=== PATIENT | male | born 1960 | race Caucasian/White ===

== ENCOUNTER 2023-12-27 17:04 | Inpatient (IN) ==
[2023-12-27 17:35] LABS: ABS Basophils 0.1 10^3/uL (0.0-0.1); ABS Eosinophils 0.1 10^3/uL (0.0-0.5); ABS Lymphocytes 1.4 10^3/uL (1.0-4.8); ABS Monocytes 0.7 10^3/uL (0.0-1.1); ABS Neutrophils 5.2 10^3/uL (1.5-7.6); ABS Nucleated RBC 0.01 10^3/ul; Eosinophil % 0.7 %; Hematocrit 45.5 % (38-53); Hemoglobin 15.6 g/dL (13.2-16.3); Lymphocyte % 18.9 %; Mean Corpuscular Hemoglobin 34.5 pg (27-33); Mean Corpuscular Hgb Conc 34.3 g/dL (31-36); Mean Corpuscular Volume 100.3 fL (80-97); Nucleated Red Blood Cells % 0.1 %/100WBC (0.0-0.8); Platelet Count 139 10^3/uL (150-450); Red Blood Count 4.53 10^6/uL (4.06-5.63); Red Cell Distribution Width 16.1 % (12-17); White Blood Count 7.5 10^3/uL (3.6-10.2)
[2023-12-27 18:18] LABS: Albumin 3.2 g/dL (3.2-5.2); Albumin/Globulin Ratio 1.2 (1-3); Calcium 8.7 mg/dL (8.6-10.3); Creatinine, Serum 0.91 mg/dL (0.67-1.17); Globulin 2.7 g/dL (2-4); Total Bilirubin 0.7 mg/dL (0.2-1.0); Total Protein 5.9 g/dL (6.4-8.9); eGFR CKD-EPI 95.3 (>60)
[2023-12-27 18:51] LABS: INR 1.06 (0.83-1.13)
[2023-12-27 19:04] LABS: High Sensitivity Troponin 1 Hr 68 pg/mL (<20)
[2023-12-27] MEDS: Furosemide 40 mg/4 ml IV VIAL IV SLOW PU ONE (19:28)
[2023-12-27] MEDS ORDERED: Albuterol HFA INHALER 8 gm MDI INH PRN (20:05)
[2023-12-27 20:55] LABS: Folate 16.92 ng/mL (5.90-24.80)
[2023-12-27] MEDS ORDERED: Budesonide/Formote 80/4.5(NF) MDI INH SCH (21:00)
[2023-12-28 05:41] LABS: ABS Eosinophils 0.1 10^3/uL (0.0-0.5); ABS Lymphocytes 1.4 10^3/uL (1.0-4.8); ABS Monocytes 0.8 10^3/uL (0.0-1.1); ABS Neutrophils 5.9 10^3/uL (1.5-7.6); ABS Nucleated RBC 0.01 10^3/ul; Eosinophil % 0.7 %; Hematocrit 47.3 % (38-53); Lymphocyte % 16.9 %; Mean Corpuscular Hemoglobin 34.1 pg (27-33); Mean Corpuscular Hgb Conc 33.9 g/dL (31-36); Mean Corpuscular Volume 100.6 fL (80-97); Mean Platelet Volume 7.7 fL (7.5-11.2); Nucleated Red Blood Cells % 0.1 %/100WBC (0.0-0.8); Platelet Count 148 10^3/uL (150-450); Red Cell Distribution Width 16.1 % (12-17); White Blood Count 8.3 10^3/uL (3.6-10.2)
[2023-12-28 06:26] LABS: Creatinine, Serum 0.91 mg/dL (0.67-1.17); Magnesium 1.5 mg/dL (1.9-2.7); Potassium 3.9 mmol/L (3.5-5.0); eGFR CKD-EPI 95.3 (>60)
[2023-12-28] MEDS: Fluticasone-Salmeterol 250-50 DISKUS NF INH SCH (06:40)
[2023-12-28] MEDS ORDERED: Dextrose 50% Syringe 50 ml 25 GM/50 ML SYRINGE IV PUSH PRN (08:01)
[2023-12-28] MEDS: Albuterol/Ipratropium NEB.SOL (2.5/0.5 MG) 3 ML NEB.SOLN INH SCH (08:35)
[2023-12-28] MEDS: CMCS: FLUTICAS/UMECLI/VILANT 200-62.5-25 MDI (NF) INH SCH (08:44)
[2023-12-28] MEDS: Furosemide 40 mg/4 ml IV VIAL IV SLOW PU SCH (08:48)
[2023-12-28] MEDS: Potassium Chlor 20 meq TAB.ER PO ONE (08:48)
[2023-12-28] MEDS: Magnesium Sulf 4 GM/100 ML IV 4,000 MG/100 ML BAG IVPB ONE (08:49)
[2023-12-28] MEDS: Isosorbide Mononit ER 60mg TAB PO SCH (08:53)
[2023-12-28 10:08] LABS: ABS Basophils 0.1 10^3/uL (0.0-0.1); ABS Lymphocytes 1.2 10^3/uL (1.0-4.8); ABS Monocytes 0.7 10^3/uL (0.0-1.1); ABS Neutrophils 5.9 10^3/uL (1.5-7.6); ABS Nucleated RBC 0.01 10^3/ul; Eosinophil % 0.4 %; Hematocrit 47.9 % (38-53); Lymphocyte % 14.7 %; Mean Corpuscular Hemoglobin 33.7 pg (27-33); Mean Corpuscular Hgb Conc 33.5 g/dL (31-36); Mean Corpuscular Volume 100.7 fL (80-97); Mean Platelet Volume 7.9 fL (7.5-11.2); Nucleated Red Blood Cells % 0.1 %/100WBC (0.0-0.8); Platelet Count 148 10^3/uL (150-450); Red Blood Count 4.75 10^6/uL (4.06-5.63); Red Cell Distribution Width 16.4 % (12-17)
[2023-12-28 10:17] LABS: Activated Partial Thrombo Time 32.1 seconds (26.0-38.0); INR 1.07 (0.83-1.13)
[2023-12-28] MEDS ORDERED: Sulfur Hexaflouride MICROSPHR 25 MG VIAL ONE (11:25)
[2023-12-28 11:47] LABS: Potassium 3.9 mmol/L (3.5-5.0); eGFR CKD-EPI 85.1 (>60)
[2023-12-28] MEDS: ERTUGLIFLOZIN 15 MG PO SCH (17:24)
[2023-12-28] MEDS: Sulfur Hexaflouride MICROSPHR 25 MG VIAL IV ONE (17:24)
[2023-12-28] MEDS: Enoxaparin 40 MG/0.4 ML SYR SUBCUT SCH (20:17)
[2023-12-29 08:54] LABS: Calcium 8.6 mg/dL (8.6-10.3); Creatinine, Serum 0.85 mg/dL (0.67-1.17); Magnesium 1.9 mg/dL (1.9-2.7); Potassium 3.9 mmol/L (3.5-5.0); eGFR CKD-EPI 98.2 (>60)
[2023-12-30] MEDS ORDERED: Albuterol/Ipratropium NEB.SOL (2.5/0.5 MG) 3 ML NEB.SOLN INH PRN (06:47)
[2023-12-30 08:07] LABS: Calcium 8.5 mg/dL (8.6-10.3); Creatinine, Serum 0.95 mg/dL (0.67-1.17); Magnesium 1.7 mg/dL (1.9-2.7); Potassium 4.1 mmol/L (3.5-5.0); eGFR CKD-EPI 90.5 (>60)
[2023-12-30] MEDS: Magnesium Sulfate 2 gm BAG 2 GM/50 ML BAG IVPB ONE (09:05)
[2023-12-31 06:21] LABS: Anion Gap 7 mmol/L (2-16); Blood Urea Nitrogen 17 mg/dL (6-24); CO2 Carbon Dioxide 33 mmol/L (22-32); Calcium 8.7 mg/dL (8.6-10.3); Chloride 97 mmol/L (101-111); Creatinine, Serum 0.98 mg/dL (0.67-1.17); Glucose 158 mg/dL (70-100); Magnesium 1.9 mg/dL (1.9-2.7); Sodium 137 mmol/L (135-145); eGFR CKD-EPI 87.2 (>60)
[2023-12-31] MEDS: NS 0.9% 1000 ml BAG 1,000 ML IV SCH ×2 (06:41→13:10)
[2023-12-31] MEDS ORDERED: Heparin 2 UNITS/ML 1000 mls 2,000 ML IV ONE (11:47)
[2023-12-31] MEDS ORDERED: Iohexol 350 (CONTRAST) 200 ML MDV IV ONE (11:47)
[2023-12-31] MEDS ORDERED: VERAPAMIL 2.5 MG/ML 2 ML VIAL ** 5 mg/2 ml ONE (11:47)
[2023-12-31] MEDS ORDERED: Heparin 1,000 UNIT/ML 10 ml (10,000 UNITS) CATHLAB/DIALYSIS ONE (11:47)
[2023-12-31] MEDS ORDERED: nitroGLYCERIN DRIP 25,000 MCG/250 ML BTL ONE (11:47)
[2023-12-31] MEDS ORDERED: Lidocaine 1% MPF 5 ML VIAL ONE (11:47)
[2023-12-31] MEDS ORDERED: fentaNYL 100 mcg/2 ml 50 MCG/ML VIAL ONE (12:06)
[2023-12-31] MEDS ORDERED: Midazolam 5 mg/5 ml VIAL 1 mg/ml 5 ml VIAL (5 mg) ONE (12:06)
[2023-12-31 12:43] LABS: POC SO2 61 %
[2023-12-31 12:43] LABS: POC SO2 57 %
[2023-12-31 12:43] LABS: POC SO2 86 %
[2023-12-31] MEDS: fentaNYL 100 mcg/2 ml 50 MCG/ML VIAL IV SLOW PU ONE (13:08)
[2023-12-31] MEDS: Midazolam 10 mg/10 ml VIAL 1 mg/ml 10 ml VIAL (10 mg) IV SLOW PU ONE (13:09)
[2023-12-31 16:38] VITALS: BP 106/79
== END 2023-12-31 17:20 | disposition home or self-care (01) | DRG 192 ==
LOC: EDHOLD 17:04 → ED 17:04 → SUATTDRO 19:58 → MEDTELE 12-28 16:35 → SUATTDRO 12-29 16:39
PROVIDERS: ADMIT Internal Medicine; ATTEND Internal Medicine

== ENCOUNTER 2024-02-10 15:24 | Inpatient (IN) ==
[2024-02-10 16:02] LABS: ABS Lymphocytes 1.2 10^3/uL (1.0-4.8); ABS Monocytes 0.5 10^3/uL (0.0-1.1); ABS Neutrophils 11.7 10^3/uL (1.5-7.6); ABS Nucleated RBC 0.01 10^3/ul; Hemoglobin 18.2 g/dL (13.2-16.3); Lymphocyte % 8.8 %; Mean Corpuscular Hemoglobin 34.1 pg (27-33); Mean Corpuscular Hgb Conc 34.4 g/dL (31-36); Mean Corpuscular Volume 99.1 fL (80-97); Mean Platelet Volume 7.7 fL (7.5-11.2); Platelet Count 196 10^3/uL (150-450); Red Blood Count 5.35 10^6/uL (4.06-5.63); Red Cell Distribution Width 16.5 % (12-17); White Blood Count 13.4 10^3/uL (3.6-10.2)
[2024-02-10 16:51] LABS: Albumin 4.1 g/dL (3.2-5.2); Albumin/Globulin Ratio 1.1 (1-3); Creatinine, Serum 0.82 mg/dL (0.67-1.17); Globulin 3.6 g/dL (2-4); Magnesium 1.5 mg/dL (1.9-2.7); Potassium 4.1 mmol/L (3.5-5.0); Total Protein 7.7 g/dL (6.4-8.9); eGFR CKD-EPI 99.3 (>60)
[2024-02-10] MEDS: Iodixanol 320 (CONTRAST) 100 ML SDV IV ONE (17:23)
[2024-02-10 17:27] LABS: High Sensitivity Troponin 1 Hr 657 pg/mL (<20)
[2024-02-10] MEDS: Ondansetron 4 mg VIAL 2 MG/ML 2 ml VIAL IV ONE (17:39)
[2024-02-10 19:14] LABS: High Sensitivity Troponin 3 Hr 739 pg/mL (<20)
[2024-02-10] MEDS: Ondansetron 4 mg VIAL 2 MG/ML 2 ml VIAL IV PRN (20:53)
[2024-02-10] MEDS: Heparin 5000 UNITS/ML 1 mL VIAL IV SCH (22:55)
[2024-02-10 22:57] LABS: ABS Basophils 0.1 10^3/uL (0.0-0.1); ABS Lymphocytes 1.6 10^3/uL (1.0-4.8); ABS Monocytes 1.2 10^3/uL (0.0-1.1); ABS Neutrophils 11.1 10^3/uL (1.5-7.6); ABS Nucleated RBC 0.01 10^3/ul; Hematocrit 54.1 % (38-53); Hemoglobin 18.2 g/dL (13.2-16.3); Lymphocyte % 11.6 %; Mean Corpuscular Hemoglobin 33.5 pg (27-33); Mean Corpuscular Hgb Conc 33.6 g/dL (31-36); Mean Corpuscular Volume 99.7 fL (80-97); Mean Platelet Volume 7.9 fL (7.5-11.2); Platelet Count 196 10^3/uL (150-450); Red Blood Count 5.43 10^6/uL (4.06-5.63); Red Cell Distribution Width 16.6 % (12-17)
[2024-02-10] MEDS: Heparin DRIP 25,000 UNITS BAG 25,000 UNITS/250 ML BAG IV SCH (22:57)
[2024-02-10] MEDS: Morphine 10 MG/ML VIAL (1 ml) IV ONE (23:16)
[2024-02-10 23:42] LABS: Creatinine, Serum 0.92 mg/dL (0.67-1.17); eGFR CKD-EPI 94.1 (>60)
[2024-02-11 03:38] LABS: Ferritin 738.8 ng/mL (24-336)
[2024-02-11 05:01] LABS: ABS Basophils 0.1 10^3/uL (0.0-0.1); ABS Lymphocytes 2.2 10^3/uL (1.0-4.8); ABS Monocytes 1.3 10^3/uL (0.0-1.1); ABS Neutrophils 11.2 10^3/uL (1.5-7.6); ABS Nucleated RBC 0.01 10^3/ul; Eosinophil % 0.1 %; Hematocrit 54.9 % (38-53); Hemoglobin 18.6 g/dL (13.2-16.3); Lymphocyte % 14.8 %; Mean Corpuscular Hemoglobin 33.9 pg (27-33); Mean Corpuscular Hgb Conc 33.9 g/dL (31-36); Mean Corpuscular Volume 99.8 fL (80-97); Mean Platelet Volume 7.9 fL (7.5-11.2); Nucleated Red Blood Cells % 0.1 %/100WBC (0.0-0.8); Platelet Count 218 10^3/uL (150-450); Red Cell Distribution Width 16.5 % (12-17); White Blood Count 14.8 10^3/uL (3.6-10.2)
[2024-02-11] MEDS ORDERED: Dextrose 50% Syringe 50 ml 25 GM/50 ML SYRINGE IV PUSH PRN (07:39)
[2024-02-11] MEDS: Mometasone/Formoter 100/5 MDI INH SCH (07:54)
[2024-02-11] MEDS: Albuterol HFA INHALER 8 gm MDI INH PRN (08:18)
[2024-02-11] MEDS: Venlafaxine XR 75 mg PO SCH (08:21)
[2024-02-11] MEDS: Isosorbide Mononit ER 60mg TAB PO SCH (08:21)
[2024-02-11 08:32] LABS: High Sensitivity Troponin 3 Hr 699 pg/mL (<20)
[2024-02-11] MEDS ORDERED: FLUTICAS/UMECLI/VILANT 200-62.5-25 MDI (NF) INH SCH (09:00)
[2024-02-11 09:29] LABS: Calcium 9.2 mg/dL (8.6-10.3); Creatinine, Serum 0.85 mg/dL (0.67-1.17); Magnesium 1.7 mg/dL (1.9-2.7); eGFR CKD-EPI 98.2 (>60)
[2024-02-11 09:46] LABS: Potassium 3.9 mmol/L (3.5-5.0)
[2024-02-11] MEDS: methylPREDNISolone SOD SUCC 40 mg/ml 1 ml VIAL IV SCH (11:00)
[2024-02-11] MEDS ORDERED: Albuterol/Ipratropium NEB.SOL (2.5/0.5 MG) 3 ML NEB.SOLN INH PRN (11:08)
[2024-02-11] MEDS: Albuterol/Ipratropium NEB.SOL (2.5/0.5 MG) 3 ML NEB.SOLN INH SCH (11:17)
[2024-02-11] MEDS: cefTRIAXone 1 gm/50 mL D5W 1 GM/50 ML BAG IV SCH (11:47)
[2024-02-11 12:10] LABS: HDL Cholesterol 60.6 mg/dL
[2024-02-11] MEDS: Magnesium Sulfate 2 gm BAG 2 GM/50 ML BAG IVPB ONE (12:55)
[2024-02-11] MEDS: Sulfur Hexaflouride MICROSPHR 25 MG VIAL IV ONE (14:18)
[2024-02-11] MEDS: Azithromycin 500 mg/250 ml NS 500 MG/250 ML BAG IVPB SCH (14:53)
[2024-02-12] MEDS: oxyCODONE/Acetamin 5/325 mg TAB PO PRN (01:10)
[2024-02-12 06:01] LABS: ABS Monocytes 0.4 10^3/uL (0.0-1.1); ABS Neutrophils 7.4 10^3/uL (1.5-7.6); Hematocrit 50.6 % (38-53); Lymphocyte % 11.3 %; Mean Corpuscular Hemoglobin 33.8 pg (27-33); Mean Corpuscular Hgb Conc 33.7 g/dL (31-36); Mean Corpuscular Volume 100.4 fL (80-97); Platelet Count 216 10^3/uL (150-450); Red Blood Count 5.04 10^6/uL (4.06-5.63); Red Cell Distribution Width 16.4 % (12-17); White Blood Count 8.8 10^3/uL (3.6-10.2)
[2024-02-12 06:17] LABS: Creatinine, Serum 1.11 mg/dL (0.67-1.17); Magnesium 2.2 mg/dL (1.9-2.7); Phosphorus 5.4 mg/dL (2.5-5.0); Potassium 4.6 mmol/L (3.5-5.0); eGFR CKD-EPI 75.1 (>60)
[2024-02-12] MEDS: Furosemide 20 mg/2 ml IV VIAL IV ONE (11:19)
[2024-02-13 06:28] LABS: ABS Lymphocytes 1.1 10^3/uL (1.0-4.8); ABS Monocytes 0.6 10^3/uL (0.0-1.1); ABS Neutrophils 9.7 10^3/uL (1.5-7.6); ABS Nucleated RBC 0.01 10^3/ul; Hematocrit 47.3 % (38-53); Lymphocyte % 9.4 %; Mean Corpuscular Hemoglobin 33.8 pg (27-33); Mean Corpuscular Hgb Conc 33.7 g/dL (31-36); Mean Corpuscular Volume 100.3 fL (80-97); Platelet Count 206 10^3/uL (150-450); Red Blood Count 4.71 10^6/uL (4.06-5.63); Red Cell Distribution Width 16.3 % (12-17); White Blood Count 11.3 10^3/uL (3.6-10.2)
[2024-02-13 06:50] LABS: Creatinine, Serum 0.97 mg/dL (0.67-1.17); Potassium 4.6 mmol/L (3.5-5.0); eGFR CKD-EPI 88.3 (>60)
[2024-02-13] MEDS ORDERED: Albuterol/Ipratropium NEB.SOL (2.5/0.5 MG) 3 ML NEB.SOLN INH PRN (11:38)
[2024-02-13 13:55] VITALS: BP 142/84
[2024-02-13 20:16] LABS: Anaplasma phagocytophilum Negative (Negative); B. miyamotoi PCR, B Negative (Negative); Babesia divergens/MO-1 Negative (Negative); Babesia ducani Negative (Negative); Ehrlichia chaffeensis Negative (Negative); Ehrlichia ewingii/canis Negative (Negative); Ehrlichia muris eauclairensis Negative (Negative)
== END 2024-02-13 16:00 | disposition home or self-care (01) | DRG 140 ==
LOC: ED 15:24 → EDHOLD 15:24 → SUATTDRO 20:19 → MEDTELE 02-11 08:07
PROVIDERS: ADMIT Internal Medicine; ATTEND Student in an Organized Health Care Education/Training Program